=== PATIENT | male | born 1970 | race Caucasian/White ===

== ENCOUNTER 2017-01-03 22:26 | Emergency (ER) | payer OTHER ==
[~2017-01-03] VITALS: Ht 180.3 cm; Wt 116.0 kg
[2017-01-03 22:32] VITALS: BP 130/83; PULSE 105; RESP 18; TEMP 99.8; O2SAT 93
[2017-01-03] MEDS ORDERED: KETOROLAC TROMETHAMINE 30 MG/ML (IVP) VIAL IV PUSH ONE (23:00)
[2017-01-03] MEDS ORDERED: SODIUM CHLOR 0.9% 1000 ML INJ 1,000 ML IV ONE (23:00)
--- NOTE | 2017-01-03 23:01 | PD ---
HPI Chief Complaint: Cold / Flu Symptoms Time Seen by Provider: 22:52 Travel History International Travel<30 days: No Contact w/Intl Traveler<30days: No Traveled to known affect area: No History of Present Illness HPI 46yo M with no significant PMH presents to the ED with c/o generalized bodyache , cough, nasal congestion, fever, frontal headache for 2 days. Denies any rash , chest pain, sob, n/v, abdominal pain, focal weakness or numbness. Pt took nyquil and [place] seltzer with no relieve. PFSH Past Medical History Medical History: Denies Significant Hx Tetanus Vaccination: > 5 Years Influenza Vaccination: No Past Surgical History Other Surgery: Yes (Vasectomy ) Social History Alcohol Use: No Tobacco Use: No Substance Use: No Allergies-Medications (Allergen,Severity, Reaction): Coded Allergies: No Known Allergies (Unverified , 01/03/17) Reported Meds & Prescriptions Reported Meds & Active Scripts Active Ibuprofen 600 Mg Tab 600 Mg PO Q6H PRN Tamiflu (Oseltamivir Phosphate) 75 Mg Cap 75 Mg PO BID 5 Days Flonase Nasal [place] (Fluticasone Nasal [place]) 50 Mcg/Act [place] 50 Mcg EACH NARE BID Acetaminophen Extra Strength (Acetaminophen) 500 Mg Tab 500 Mg PO Q6H PRN Review of Systems Except as stated in HPI: all other systems reviewed are Neg Physical Exam Narrative GENERAL: 46yo M in mild distress. SKIN: Warm and dry. HEAD: Atraumatic. Normocephalic. EYES: Pupils equal and round at 4mm bilaterally. EOMI. No scleral icterus. No injection or drainage. ENT: TM wnl bilaterally. Throat clear. +Increased swelling in nasal turbinates. NECK: No nuchal rigidity. No cervical lymphadenopathy. CARDIOVASCULAR: Regular rate and rhythm. No murmur appreciated. RESPIRATORY: No accessory muscle use. Clear to auscultation. Breath sounds equal bilaterally. GASTROINTESTINAL: Abdomen soft, non-tender, nondistended. MUSCULOSKELETAL: No obvious deformities. No clubbing. No cyanosis. No edema. NEUROLOGICAL: Awake and alert. No obvious cranial nerve deficits. Motor grossly within normal limits. Normal speech. PSYCHIATRIC: Appropriate mood and affect; insight and judgment normal. Data Data Last Documented VS Vital Signs Date Time Temp Pulse Resp B/P Pulse Ox O2 Delivery O2 Flow Rate FiO2 01/04/17 00:56 18 01/04/17 00:50 99.2 92 121/74 95 Room Air Orders Ketorolac Inj (Toradol Inj) (01/03/17 23:00) Sodium Chlor 0.9% 1000 Ml Inj (Ns 1000 M (01/03/17 23:00) Influenzae A/B Antigen (01/03/17 22:57) Chest, Single Ap (01/03/17 ) MDM Medical Decision Making Medical Screen Exam Complete: Yes Emergency Medical Condition: Yes Differential Diagnosis Influenza vs. sinus headache vs. URI vs. pneumonia Narrative Course 46yo M with flu like symptoms. His son also had similar symptoms. Pt given toradol 30mg and NS IVF. CXR negative. Pt reevaluated at bedside and headache has improved. Influenza pending and sign out to next team Dr. Reddy to follow up on result. Diagnosis Primary Impression: Influenza B Patient Instructions: General Instructions Departure Forms: Tests/Procedures Additional Instructions: Please follow up with your PMD in 3-7 days. Return to the ED if symptoms worsen. Med/Other Pt SpecificInfo: Prescription(s) given Scripts Ibuprofen 600 Mg [id number] Mg PO Q6H PRN (Pain/Inflammation) #40 TAB Ref 0 Prov:Leena Reddy DO 01/04/17 Oseltamivir (Tamiflu)75 Mg Cap75 Mg PO BID 5 Days Ref 0 Prov:Leena Reddy DO 01/04/17 Fluticasone Nasal [place] (Flonase Nasal [place])50 Mcg/Act Spray50 Mcg EACH NARE BID #1 BOTTLE Ref 0 Prov:Anastasia Hoang DO 01/04/17 Acetaminophen (Acetaminophen Extra Strength)500 Mg [id number] Mg PO Q6H PRN (PAIN SCALE 1 TO 4) #20 TAB Ref 0 Prov:Anastasia Hoang DO 01/03/17 Disposition: 01 DISCHARGE HOME Condition: Stable HoangReny wardadelaida ARRIOLA Jan 03, 2017 23:01
[2017-01-03] MEDS ORDERED: ACET500T36 PO (23:36)
--- NOTE | 2017-01-03 23:36 | RADHPO ---
EXAM DATE/TIME: 01/03/2017 23:07 [facility] COMPARISON: No previous studies available for comparison. INDICATIONS : Chest discomfort, flu-like symptoms for 3 days MEDICAL HISTORY : None. SURGICAL HISTORY : None. ENCOUNTER: Initial ACUITY: 3 days PAIN SCORE: 0/10 LOCATION: Bilateral chest FINDINGS: Single AP view of the chest. The lungs are clear. Cardiomediastinal silhouette within normal limits. No evidence of pleural effusion or pneumothorax. Glenohumeral joint arthrosis bilaterally. CONCLUSION: No acute cardiopulmonary disease identified. Bradley Rinaldi MD on January 03, 2017 at 23:34 Board Certified Radiologist. This report was verified electronically.
[2017-01-03 23:45] VITALS: BP 123/73; PULSE 95; RESP 18; O2SAT 95
[2017-01-04] MEDS ORDERED: FLUT1SPR5 EACH NARE (00:14)
[2017-01-04] MEDS ORDERED: OSEL75 PO (00:27)
[2017-01-04] MEDS ORDERED: IBUP-232 PO (00:27)
--- NOTE | 2017-01-04 00:28 | PD ---
Physical Exam Date Seen by Provider: Jan 04, 2017 Data Data Last Documented VS Vital Signs Date Time Temp Pulse Resp B/P Pulse Ox O2 Delivery O2 Flow Rate FiO2 01/03/17 22:56 18 Room Air 01/03/17 22:32 99.8 105 130/83 93 Orders Ketorolac Inj (Toradol Inj) (01/03/17 23:00) Sodium Chlor 0.9% 1000 Ml Inj (Ns 1000 M (01/03/17 23:00) Influenzae A/B Antigen (01/03/17 22:57) Chest, Single Ap (01/03/17 ) MDM Medical Record Reviewed: Yes Supervised Visit with JOSEPH: No Interpretation(s) Vital Signs Date Time Temp Pulse Resp B/P Pulse Ox O2 Delivery O2 Flow Rate FiO2 01/03/17 22:56 18 Room Air 01/03/17 22:32 99.8 105 18 130/83 93 Microbiology Date/Time Procedure Status Source Growth 01/03/17 23:40 Influenza Types A,B Antigen (NAOMI) - Final Complete Nasal Aspirate Positive For Flu B Antigen Last Impressions Chest X-Ray 01/03/17 0000 Signed Impressions: Service Date/Time: Tuesday, January 03, 2017 23:07 - CONCLUSION: No acute cardiopulmonary disease identified. Bradley Rinaldi MD Differential Diagnosis Viral syndrome, influenza Narrative Course Please see previous providers for full medical workup Patient is a 46-year-old male who presents to emergency room with complaints of fevers, chills, cough, congestion, myalgias and headaches for the past 2 days. Reports no sick contacts, reports that he tried using [id number] medications with no relief of symptoms. X-ray of the chest was negative for pneumonia. Patient is positive for influenza B. With the patient on Tamiflu as symptoms started 2 days ago. Signs and symptoms of when to return to the emergency room was reviewed with patient in detail. I encouraged ibuprofen as well as acetaminophen for fever. Discussed need to follow up with his primary care doctor in 2-3 days Diagnosis Primary Impression: Influenza B Patient Instructions: General Instructions Departure Forms: Tests/Procedures Additional Instruction: Please follow up with your PMD in 2-3 days. Return to the ED if symptoms worsen. Please take Tylenol or Motrin for pain Med/Other Pt SpecificInfo: Prescription(s) given Scripts Ibuprofen 600 Mg [id number] Mg PO Q6H PRN (Pain/Inflammation) #40 TAB Ref 0 Prov:Leena Reddy DO 01/04/17 Oseltamivir (Tamiflu)75 Mg Cap75 Mg PO BID 5 Days Ref 0 Prov:Leena Reddy DO 01/04/17 Fluticasone Nasal [place] (Flonase Nasal [place])50 Mcg/Act Spray50 Mcg EACH NARE BID #1 BOTTLE Ref 0 Prov:Anastasia Hoang DO 01/04/17 Acetaminophen (Acetaminophen Extra Strength)500 Mg [id number] Mg PO Q6H PRN (PAIN SCALE 1 TO 4) #20 TAB Ref 0 Prov:Anastasia Hoang DO 01/03/17 Disposition: 01 DISCHARGE HOME Condition: Stable Leena Reddy DO Jan 04, 2017 00:28
[2017-01-04 00:50] VITALS: BP 121/74; PULSE 92; RESP 18; TEMP 99.2; O2SAT 95
[2017-01-04 00:56] VITALS: RESP 18
== END 2017-01-04 01:12 | disposition home or self-care (01) ==
LOC: PHED 22:26
DX: J10.1 Influenza due to other identified influenza virus with other respiratory manifestations (principal)
CPT/HCPCS: 71010; 87804; 96361; 96374; 99284; J1885; J7030